=== PATIENT | female | born 1955 | race Caucasian/White ===

== ENCOUNTER 2019-09-07 08:45 | Emergency (ER) | payer MEDICARE, MEDICAID ==
[~2019-09-07] VITALS: Ht 152.4 cm; Wt 80.0 kg
--- NOTE | 2019-09-07 09:37 | NUR ---
Medical records requested from [facility].
--- NOTE | 2019-09-07 11:24 | NUR ---
VASCULAR AT BEDSIDE EVALAUTING PT.
[2019-09-07 12:19] VITALS: BP 125/78
== END 2019-09-07 12:26 | disposition home or self-care (01) ==
LOC: ER 08:45
DX: M25.572 Pain in left ankle and joints of left foot (principal); R22.42 Localized swelling, mass and lump, left lower limb; E78.00 Pure hypercholesterolemia, unspecified; I10 Essential (primary) hypertension; E11.9 Type 2 diabetes mellitus without complications; Z88.2 Allergy status to sulfonamides
CPT/HCPCS: 93971; 99284